=== PATIENT | female | born 1985 | race African-American/Black ===

== ENCOUNTER 2016-07-28 11:03 | Emergency (ER) | payer OTHER ==
[~2016-07-28] VITALS: Ht 167.6 cm; Wt 161.0 kg
[2016-07-28] MEDS ORDERED: METF500T4 PO (11:06)
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
[2016-07-28] MEDS ORDERED: ONDANSETRON 4 MG TAB.RAPDIS ONE (11:40)
[2016-07-28] MEDS ORDERED: CYCLOBENZAPRINE 10 MG TABLET ONE (11:40)
[2016-07-28] MEDS ORDERED: HYDROCODONE/APAP 5/325MG 1 EACH TABLET ONE (11:40)
--- NOTE | 2016-07-28 11:47 | NUR ---
PT TRANSPORTED TO [facility]; WAIVER SIGNED.
[2016-07-28] MEDS ORDERED: ONDANSETRON 4 MG TAB.RAPDIS SL ONE (12:00)
[2016-07-28] MEDS ORDERED: CYCLOBENZAPRINE 10 MG TABLET PO ONE (12:00)
[2016-07-28] MEDS ORDERED: HYDROCODONE/APAP 5/325MG 1 EACH TABLET PO ONE (12:00)
--- NOTE | 2016-07-28 12:58 | NUR ---
RESTING QUIETLY WITH FAMILY AT BEDSIDE. NAD NOTED. REPORTS ADEQUATE PAIN RELIEF.
--- NOTE | 2016-07-28 13:35 | NUR ---
Patient discharged to home in stable condition. Written and verbal after care instructions given. Patient verbalizes understanding of instruction. GAIT TRAINING FOR CRTUCHES COMPLETED.
[2016-07-28 13:36] VITALS: BP 143/96
== END 2016-07-28 13:37 | disposition home or self-care (01) ==
LOC: ER 11:05
DX: M25.562 Pain in left knee (principal); M54.5 Low back pain; G89.29 Other chronic pain; E11.9 Type 2 diabetes mellitus without complications; Z98.890 Other specified postprocedural states; V49.50XA Passenger injured in collision with unspecified motor vehicles in traffic accident, initial encounter; Y93.89 Activity, other specified; Y92.413 State road as the place of occurrence of the external cause; Y99.8 Other external cause status
CPT/HCPCS: 72100-TC; 73562; A4606; Q0162; Z7610